=== PATIENT | female | born 1995 | race American Indian/Alaskan Native ===

== ENCOUNTER 2017-05-29 01:49 | Emergency (ER) | payer MEDICAID ==
[2017-05-29] MEDS ORDERED: TYLENOL ONE (02:15)
[2017-05-29] MEDS ORDERED: NACL 0.9% 500 ML 500 ML IV ONE (02:19)
[2017-05-29] MEDS ORDERED: TYLENOL PO ONE (02:21)
[2017-05-29 03:09] LABS: Basophils % (Auto) 0.4 % (0.0-1.8); Eosinophils % (Auto) 0.1 % (0.0-4.3); Hematocrit 31.1 % (30.3-42.9); Hemoglobin 10.1 gm/dl (10.1-14.3); Mean Corpuscular HGB Conc 32 % (30-34); Mean Corpuscular Volume 79 fl (79-97); Platelet Count 400 K/mm3 (140-440); Red Blood Count 3.93 M/mm3 (3.65-5.03); Red Cell Distribution Width 19.1 % (13.2-15.2); White Blood Count 14.4 K/mm3 (4.5-11.0)
[2017-05-29 03:10] LABS: Mean Corpuscular Hemoglobin 26 pg (28-32)
[2017-05-29 03:19] LABS: Alanine Aminotransferase 26 units/L (7-56); Albumin 3.7 g/dL (3.9-5); Albumin/Globulin Ratio 1.1 %; Alkaline Phosphatase 54 units/L (35-129); Anion Gap 19 mmol/L; BUN/Creatinine Ratio 16; Blood Urea Nitrogen 11 mg/dL (7-17); Calcium 8.9 mg/dL (8.4-10.2); Carbon Dioxide 22 mmol/L (22-30); Chloride 103.2 mmol/L (98-107); Glucose 110 mg/dL (65-100); Potassium 3.8 mmol/L (3.6-5.0); Sodium 140 mmol/L (137-145); Total Protein 7.1 g/dL (6.3-8.2)
--- NOTE | 2017-05-29 06:40 | XRay Report ---
FINAL REPORT PROCEDURE: XR CHEST ROUTINE 2V TECHNIQUE: PA and lateral chest radiographs were obtained. CPT 65797 HISTORY: SOB COMPARISON: No prior studies are available for comparison. FINDINGS: Heart: Normal. Mediastinum/Vessels: Normal. Lungs/Pleural space: There are no infiltrates, effusions or pneumothoraces.. Bony thorax: No acute osseous abnormality. Other: IMPRESSION: Normal heart and lungs..
[2017-05-29] MEDS ORDERED: ZOFRAN IV ONE (07:27)
[2017-05-29] MEDS ORDERED: TORADOL IV ONE (07:27)
--- NOTE | 2017-05-29 09:13 | Emergency Department Report ---
ED General Adult HPI - General Chief complaint: Fever Stated complaint: GENERAL SICKNESS Time Seen by Provider: 05/29/17 07:26 Source: patient, EMS Mode of arrival: Ambulatory Limitations: No Limitations - History of Present Illness Initial comments: Patient is a 22-year-old female no significant past medical history who presents with myalgias and body aches and feeling some malaise. Patient states that symptoms started yesterday. She states that her symptoms were sudden. This occurred [place] [facility] [place]. She says her body aches are diffuse everywhere they're achy it's a 5 out 10 nothing makes her body aches better or worse. Patient denies having nausea or vomiting. Patient also states that she's been coughing some. She denies getting her flu shot. She has no chest pain and she has no shortness of breath. Additionally complains of subjective fever. Severity scale (0 -10): 5 - Related Data Previous Rx's Medication Instructions Recorded Last Taken Type Acetaminophen 500 mg PO Q6HR #30 tablet 05/29/17 Unknown Rx Naproxen 250 mg PO BID #30 tablet 05/29/17 Unknown Rx Allergies Allergy/AdvReac Type Severity Reaction Status Date / Time No Known Allergies Allergy Unverified 05/29/17 02:19 ED Review of Systems ROS: Stated complaint: GENERAL SICKNESS Other details as noted in HPI Constitutional: denies: chills, fever Eyes: denies: eye pain, eye discharge, vision change ENT: denies: ear pain, throat pain Respiratory: denies: cough, shortness of breath, wheezing Cardiovascular: denies: chest pain, palpitations Endocrine: no symptoms reported Gastrointestinal: denies: abdominal pain, nausea, diarrhea Genitourinary: denies: urgency, dysuria, discharge Musculoskeletal: denies: back pain, joint swelling, arthralgia Skin: denies: rash, lesions Neurological: denies: headache, weakness, paresthesias Psychiatric: denies: anxiety, depression Hematological/Lymphatic: denies: easy bleeding, easy bruising ED Past Medical Hx - Past Medical History Previous Medical History?: No - Surgical History Past Surgical History?: No - Social History Smoking Status: Current Every Day Smoker Substance Use Type: None - Medications Home Medications: Home Medications Medication Instructions Recorded Confirmed Last Taken Type Acetaminophen 500 mg PO Q6HR #30 tablet 05/29/17 Unknown Rx Naproxen 250 mg PO BID #30 tablet 05/29/17 Unknown Rx ED Physical Exam - General Limitations: No Limitations General appearance: obese - Head Head exam: Present: atraumatic, normocephalic - Eye Eye exam: Present: normal appearance - ENT ENT exam: Present: mucous membranes moist - Neck Neck exam: Present: normal inspection - Respiratory Respiratory exam: Present: normal lung sounds bilaterally. Absent: respiratory distress - Cardiovascular Cardiovascular Exam: Present: regular rate, normal rhythm. Absent: systolic murmur, diastolic murmur, rubs, gallop - GI/Abdominal GI/Abdominal exam: Present: soft, normal bowel sounds - Extremities Exam Extremities exam: Present: normal inspection - Back Exam Back exam: Present: normal inspection - Neurological Exam Neurological exam: Present: alert, oriented X3 - Psychiatric Psychiatric exam: Present: normal affect, normal mood - Skin Skin exam: Present: warm, dry, intact, normal color. Absent: rash ED Course Vital Signs 05/29/17 05/29/17 05/29/17 02:07 02:15 02:22 Temperature 102.7 F H Pulse Rate 120 H 115 H Respiratory 18 20 20 Rate Blood Pressure 166/82 166/82 Blood Pressure [Left] O2 Sat by Pulse 99 98 Oximetry 05/29/17 05/29/17 05/29/17 05:18 06:51 06:52 Temperature 99.3 F 100.7 F H Pulse Rate 107 H Respiratory 18 24 24 Rate Blood Pressure Blood Pressure 137/63 [Left] O2 Sat by Pulse 98 98 Oximetry 05/29/17 05/29/17 05/29/17 07:31 07:51 08:01 Temperature Pulse Rate 95 H 92 H 94 H Respiratory 20 15 Rate Blood Pressure 137/63 137/63 128/36 Blood Pressure [Left] O2 Sat by Pulse 98 97 97 Oximetry 05/29/17 05/29/17 08:15 08:29 Temperature 99.3 F Pulse Rate 97 H Respiratory 16 Rate Blood Pressure 128/36 Blood Pressure [Left] O2 Sat by Pulse 98 Oximetry ED Medical Decision Making - Lab Data Result diagrams: 05/29/17 02:40 05/29/17 02:40 Lab Results 05/29/17 05/29/17 05/29/17 Range/Units 02:21 02:40 02:40 WBC 14.4 H (4.5-11.0) K/mm3 RBC 3.93 (3.65-5.03) M/mm3 Hgb 10.1 (10.1-14.3) gm/dl Hct 31.1 (30.3-42.9) % MCV 79 (79-97) fl MCH 26 L (28-32) pg MCHC 32 (30-34) % RDW 19.1 H (13.2-15.2) % Plt Count 400 (140-440) K/mm3 Lymph % (Auto) 11.6 L (13.4-35.0) % [place] % (Auto) 5.6 (0.0-7.3) % Eos % (Auto) 0.1 (0.0-4.3) % Baso % (Auto) 0.4 (0.0-1.8) % Lymph # 1.7 (1.2-5.4) K/mm3 [place] # 0.8 (0.0-0.8) K/mm3 Eos # 0.0 (0.0-0.4) K/mm3 Baso # 0.1 (0.0-0.1) K/mm3 Seg Neutrophils % 82.3 H (40.0-70.0) % Seg Neutrophils # 11.8 H (1.8-7.7) K/mm3 Sodium 140 (137-145) mmol/L Potassium 3.8 (3.6-5.0) mmol/L Chloride 103.2 (98-107) mmol/L Carbon Dioxide 22 (22-30) mmol/L Anion Gap 19 mmol/L BUN 11 (7-17) mg/dL Creatinine 0.7 (0.7-1.2) mg/dL Estimated GFR > 60 ml/min BUN/Creatinine Ratio 16 % Glucose 110 H (65-100) mg/dL Lactic Acid (0.7-2.0) mmol/L Calcium 8.9 (8.4-10.2) mg/dL Total Bilirubin 0.40 (0.1-1.2) mg/dL AST 20 (5-40) units/L ALT 26 (7-56) units/L Alkaline Phosphatase 54 (35-129) units/L Total Protein 7.1 (6.3-8.2) g/dL Albumin 3.7 L (3.9-5) g/dL Albumin/Globulin Ratio 1.1 % Urine HCG, Qual Negative (Negative) 05/29/17 05/29/17 Range/Units 02:40 05:01 WBC (4.5-11.0) K/mm3 RBC (3.65-5.03) M/mm3 Hgb (10.1-14.3) gm/dl Hct (30.3-42.9) % MCV (79-97) fl MCH (28-32) pg MCHC (30-34) % RDW (13.2-15.2) % Plt Count (140-440) K/mm3 Lymph % (Auto) (13.4-35.0) % [place] % (Auto) (0.0-7.3) % Eos % (Auto) (0.0-4.3) % Baso % (Auto) (0.0-1.8) % Lymph # (1.2-5.4) K/mm3 [place] # (0.0-0.8) K/mm3 Eos # (0.0-0.4) K/mm3 Baso # (0.0-0.1) K/mm3 Seg Neutrophils % (40.0-70.0) % Seg Neutrophils # (1.8-7.7) K/mm3 Sodium (137-145) mmol/L Potassium (3.6-5.0) mmol/L Chloride (98-107) mmol/L Carbon Dioxide (22-30) mmol/L Anion Gap mmol/L BUN (7-17) mg/dL Creatinine (0.7-1.2) mg/dL Estimated GFR ml/min BUN/Creatinine Ratio % Glucose (65-100) mg/dL Lactic Acid 0.90 1.70 (0.7-2.0) mmol/L Calcium (8.4-10.2) mg/dL Total Bilirubin (0.1-1.2) mg/dL AST (5-40) units/L ALT (7-56) units/L Alkaline Phosphatase (35-129) units/L Total Protein (6.3-8.2) g/dL Albumin (3.9-5) g/dL Albumin/Globulin Ratio % Urine HCG, Qual (Negative) - Radiology Data Radiology results: report reviewed, image reviewed Chest x-ray: Shows no acute cardiopulmonary disease - Medical Decision Making Chief medical diagnosis: Influenza Differential medical diagnosis: UTI, pneumonia, electrolyte abnormality I will get CBC, CMP, IV fluids, IV Toradol, chest x-ray and urinalysis Patient is feeling better patient's laboratory findings and imaging findings are unremarkable patient most likely has viral syndrome also and patient home with Tylenol and ibuprofen to take. Discussed findings with patient and patient agrees upon additional verbal discharge instructions were given. Critical care attestation.: If time is entered above; I have spent that time in minutes in the direct care of this critically ill patient, excluding procedure time. ED Disposition Clinical Impression: Viral syndrome, Myalgia Disposition: DC-01 TO HOME OR SELFCARE Is pt being admited?: No Does the pt Need Aspirin: No Condition: Stable Instructions: Viral Syndrome (ED) Prescriptions: Acetaminophen 500 mg PO Q6HR #30 tablet Naproxen 250 mg PO BID #30 tablet Referrals: MEMO MORSE MD [Other] - 3-5 Days
[2017-05-29 11:14] VITALS: BP 122/68
== END 2017-05-29 11:14 | disposition home or self-care (01) ==
LOC: ED 01:49
CPT/HCPCS: 36415 ×2; 71020 ×2; 80053 ×2; 81025 ×2; 82140 ×2; 85025 ×2; 96374 ×2; 96375 ×2; 99285; J1885; J2405